=== PATIENT | female | born 1955 | race Two or more races ===

== ENCOUNTER 2018-11-29 07:42 | Outpatient (CLI) | payer OTHER ==
[~2018-11-29 07:42] MED LIST: DELZICOL400 MG; LEVOXYL25 MCG; SYNTHROID; SYNVASTATIN
== END 2018-11-29 07:44 | disposition home or self-care (01) ==
LOC: TOM 07:42
DX: K51.30 Ulcerative (chronic) rectosigmoiditis without complications (principal); R10.31 Right lower quadrant pain
CPT/HCPCS: 74178; Q9965

== ENCOUNTER 2018-12-14 07:31 | Outpatient (CLI) | payer OTHER | END 2018-12-14 07:40 | disposition home or self-care (01) | LOC: MAMO-SONO 07:31 | DX: Z12.31 Encounter for screening mammogram for malignant neoplasm of breast (principal); Z87.898 Personal history of other specified conditions; N64.89 Other specified disorders of breast ==

== ENCOUNTER 2019-03-18 09:23 | Emergency (ER) | payer OTHER ==
[~2019-03-18] VITALS: Ht 160 cm; Wt 49.0 kg
[2019-03-18] MEDS ORDERED: SYNTHROID50 MCG (09:39)
[2019-03-18] MEDS ORDERED: LEVOTHYROXINE25 MCG (09:39)
[2019-03-18] MEDS ORDERED: CRESTOR20 MG (09:39)
== END 2019-03-18 22:21 | disposition home or self-care (01) ==
LOC: ER 09:23
DX: K51.80 Other ulcerative colitis without complications (principal); K59.09 Other constipation

== ENCOUNTER 2020-02-21 09:29 | Outpatient (CLI) | payer OTHER ==
[~2020-02-21 09:29] MED LIST changes: +CRESTOR20 MG; +LEVOTHYROXINE25 MCG; +SYNTHROID50 MCG
== END 2020-02-21 09:41 | disposition home or self-care (01) ==
LOC: MAMO-SONO 09:29
PROVIDERS: ATTEND Specialist
DX: Z12.31 Encounter for screening mammogram for malignant neoplasm of breast (principal)

== ENCOUNTER 2020-07-09 11:37 | Outpatient (CLI) | payer OTHER | END 2020-07-09 13:14 | disposition home or self-care (01) | LOC: NUCLEAR 11:37 | PROVIDERS: ATTEND Specialist | DX: M81.0 Age-related osteoporosis without current pathological fracture (principal) ==

== ENCOUNTER 2021-02-02 11:54 | Outpatient (CLI) | payer OTHER | END 2021-02-02 12:08 | disposition home or self-care (01) | LOC: RAD 11:54 | PROVIDERS: ATTEND Specialist | DX: R07.89 Other chest pain (principal); J45.998 Other asthma ==

== ENCOUNTER → 2021-02-08 09:53 | Outpatient (CLI) | payer OTHER | END | disposition home or self-care (01) | LOC: MAMO-SONO 09:53 | PROVIDERS: ATTEND Specialist | DX: R92.1 Mammographic calcification found on diagnostic imaging of breast (principal); Z12.31 Encounter for screening mammogram for malignant neoplasm of breast ==

== ENCOUNTER 2022-02-09 13:54 | Outpatient (CLI) | payer OTHER | END 2022-02-09 14:02 | disposition home or self-care (01) | LOC: MAMO-SONO 13:54 | PROVIDERS: ATTEND Specialist | DX: N60.39 Fibrosclerosis of unspecified breast (principal) ==

== ENCOUNTER 2022-04-08 10:20 | Outpatient (CLI) | payer OTHER | END 2022-04-08 10:30 | disposition home or self-care (01) | LOC: PPH VACUNA 10:20 | PROVIDERS: ATTEND Emergency Medicine Pediatric Emergency Medicine | DX: Z23 Encounter for immunization (principal) ==

== ENCOUNTER 2022-09-10 10:13 | Outpatient (CLI) | payer OTHER | END 2022-09-10 10:21 | disposition home or self-care (01) | LOC: RAD 10:13 | PROVIDERS: ATTEND Specialist | DX: J45.991 Cough variant asthma (principal) ==

== ENCOUNTER → 2023-02-24 | Outpatient (CLI) | payer OTHER | END | disposition home or self-care (01) | LOC: MAMO-SONO 12:45 | PROVIDERS: ATTEND Specialist | DX: Z12.31 Encounter for screening mammogram for malignant neoplasm of breast (principal); N60.39 Fibrosclerosis of unspecified breast ==

== ENCOUNTER 2023-06-22 09:50 | Emergency (ER) | payer OTHER ==
[~2023-06-22] VITALS: Ht 160 cm; Wt 54.4 kg
[2023-06-22] MEDS ORDERED: SINGULAIR10 MG PO (10:21)
[2023-06-22 10:59] LABS: HEMATOCRIT 37.8 % (36.0-45.00); HEMOGLOBIN 12.8 g/dL (12.0-15.00); MEAN CELL VOLUME 87.5 fL (80.00-100.00); MEAN CORPUSCULAR HEMOGLOBIN 29.6 pg (27.00-32.0); MEAN CORPUSCULAR HGB CONC 33.8 g/dl (32.0-36.0); PLATELET COUNT 163 K/uL (150-450); RED BLOOD COUNT 4.32 M/uL (4.00-6.00); RED CELL DISTRIBUTION WIDTH 13.6 % (11.5-14.5)
[2023-06-22] MEDS ORDERED: PROAIR RESPICL90 MCG IH (11:49)
[2023-06-22] MEDS ORDERED: PAXLOVID 300-11 EAC1 PO (11:49)
[2023-06-22] MEDS ORDERED: TUSNEL LIQUID178 ML PO (11:49)
== END 2023-06-22 11:54 | disposition home or self-care (01) ==
LOC: ER 09:50
PROVIDERS: General Practice
DX: U07.1 COVID-19 (principal)
CPT/HCPCS: 36415; 96372; 99284; J1100

== ENCOUNTER 2024-05-09 11:29 | Outpatient (CLI) | payer OTHER ==
[~2024-05-09 11:29] MED LIST changes: +PAXLOVID 300-11 EAC1 PO; +PROAIR RESPICL90 MCG IH; +SINGULAIR10 MG PO; +TUSNEL LIQUID178 ML PO
== END 2024-05-09 11:35 | disposition home or self-care (01) ==
LOC: MAMO-SONO 11:29
PROVIDERS: ATTEND Specialist
DX: N60.39 Fibrosclerosis of unspecified breast (principal); Z12.39 Encounter for other screening for malignant neoplasm of breast; Z12.31 Encounter for screening mammogram for malignant neoplasm of breast